=== PATIENT | male | born 1955 | race Caucasian/White ===

== ENCOUNTER 2018-02-03 08:35 | Outpatient (CLI) | payer OTHER | END 2018-02-03 21:08 | disposition home or self-care (01) | LOC: SMI 08:35 | PROVIDERS: ATTEND Orthopaedic Surgery | DX: S63.642A Sprain of metacarpophalangeal joint of left thumb, initial encounter (principal); X58.XXXA Exposure to other specified factors, initial encounter; Y93.89 Activity, other specified; Y92.89 Other specified places as the place of occurrence of the external cause; Y99.8 Other external cause status | CPT/HCPCS: 73221 ==